=== PATIENT | male | born 1985 | race Two or more races ===

== ENCOUNTER 2024-05-28 14:40 | Emergency (ER) | payer SELFPAY ==
[2024-05-28 14:53] VITALS: BP 148/107; PULSE 69; RESP 18; TEMP 98.1; BMI 27.4
[2024-05-28] MEDS ORDERED: FAMOTIDINE 20 MG/50 ML IVPB 20 MG/50 ML MG IVPB ONE (15:40)
[2024-05-28] MEDS ORDERED: MAG HYDROX/AL HYDROX/SIMETH 30 ML UNIT-DOSE CUP ONE (15:40)
[2024-05-28] MEDS ORDERED: ACETAMINOPHEN INJECTION 100 ML ONE (15:40)
[2024-05-28] MEDS ORDERED: ONDANSETRON 4 MG/2 ML VIAL ONE (15:40)
[2024-05-28] MEDS: MAG HYDROX/AL HYDROX/SIMETH 30 ML UNIT-DOSE CUP PO ONE (15:54)
[2024-05-28] MEDS: ONDANSETRON 4 MG/2 ML VIAL IVPB ONE (15:54)
[2024-05-28] MEDS: FAMOTIDINE 20 MG/50 ML IVPB 20 MG/50 ML MG IVPB ONE (15:54)
[2024-05-28] MEDS: ACETAMINOPHEN 1000 MG/100 ML BAG IVPB ONE (15:54)
[2024-05-28 16:05] LABS: BASO % 0.5 % (0-2.0); EOS % 0.1 % (0-4.5); LYMPH % 18.3 % (8-40); MCHC 34.7 g/dl (32.0-35.9); MEAN CELL VOLUME 89.3 fl (80-96); MONO % 3.5 % (3.8-10.2); NEUT % 77.6 % (42.8-82.8); PLATELET COUNT 234 10^3/uL (134-434); RBC 5.48 M/mm3 (4.00-5.60); RDW 13.7 % (11.9-15.9)
[2024-05-28 16:20] LABS: POTASSIUM 3.8 mmol/L (3.5-5.1)
[2024-05-28 16:24] LABS: ALBUMIN 3.3 g/dl (3.4-5.0); BLOOD UREA NITROGEN 22.6 mg/dL (7-18); CALCIUM 8.7 mg/dL (8.5-10.1); MAGNESIUM 1.8 mg/dL (1.8-2.4)
[2024-05-28 16:27] LABS: CREATININE 1.6 mg/dL (0.55-1.3)
[2024-05-28 16:29] LABS: BILIRUBIN,TOTAL 0.7 mg/dL (0.2-1); TOT PROT 7.1 g/dl (6.4-8.2)
[2024-05-28 17:18] LABS: HIV INTERPRETATION NEGATIVE (NEGATIVE)
[2024-05-28] MEDS: LACTATED RINGERS SOLUTION 1000 ML INFUS.BAG IV ONE (17:47)
== END 2024-05-28 19:46 | disposition home or self-care (01) ==
LOC: JER 14:40
PROC: 3E033GC Introduction of Other Therapeutic Substance into Peripheral Vein, Percutaneous Approach (ICD-10-PCS; principal; 2024-05-28)
PROC: 3E033NZ Introduction of Analgesics, Hypnotics, Sedatives into Peripheral Vein, Percutaneous Approach (ICD-10-PCS; 2024-05-28)
PROC: 3E033GC Introduction of Other Therapeutic Substance into Peripheral Vein, Percutaneous Approach (ICD-10-PCS; 2024-05-28)
DX: R10.10 Upper abdominal pain, unspecified (principal); R55 Syncope and collapse; R00.2 Palpitations; R11.0 Nausea; R61 Generalized hyperhidrosis; X50.1XXA Overexertion from prolonged static or awkward postures, initial encounter; Y93.11 Activity, swimming
CPT/HCPCS: 36415; 70450-TC; 71045-TC-FY; 76705-TC; 80053; 83690; 83735; 84484; 85025; 86803; 87389; 93005; 93010; 99285-25; J0131